=== PATIENT | female | born 1980 | race Asian ===

== ENCOUNTER 2018-01-18 07:41 | Emergency (ER) | payer SELFPAY ==
[~2018-01-18] VITALS: Ht 152.4 cm; Wt 77.1 kg
--- NOTE | 2018-01-18 08:15 | PHYS DOC ---
Past History Past Medical History: No Pertinent History Past Surgical History: Smoking: Non-smoker Alcohol Use: Occasionally Drug Use: Marijuana Adult General Chief Complaint Chief Complaint: vaginal bleeding in [facility] HPI 37-year-old female patient with LMP of 11/19/2017 at 8 weeks of gestation with home positive test without confirmed test in clinic with B+ blood type complaining of vaginal spotting and abdominal cramping pain for the last 10 days that getting worse today. She complaining of lower abdominal pain with radiation to her back as a crampy pain and rated her pain 5/ 10. Patient states she has bright red spotting when she wiped herself without needs to use a pad Patient denies nausea or vomiting, fever and chills, urinary symptoms, dizziness and palpitation. Patient states she did not seeking medical attention since she had vaginal bleeding. Review of Systems Review of Systems Constitutional: Denies fever or chills [] Eyes: Denies change in visual acuity, redness, or eye pain [] HENT: Denies nasal congestion or sore throat [] Respiratory: Denies cough or shortness of breath [] Cardiovascular: No additional information not addressed in HPI [] GI: Reports abdominal abdominal pain, denies nausea, vomiting, bloody stools or diarrhea [] : Denies dysuria or hematuria , reports vaginal bleeding[] Musculoskeletal: Denies back pain or joint pain [] Integument: Denies rash or skin lesions [] Neurologic: Denies headache, focal weakness or sensory changes [] Endocrine: Denies polyuria or polydipsia [] All other systems were reviewed and found to be within normal limits, except as documented in this note. Allergies Allergies Allergies Coded Allergies Type Severity Reaction Last Updated Verified No Known Drug Allergies 06/12/14 No Physical Exam Physical Exam Constitutional: Well developed, well nourished, mild distress, non-toxic appearance. [] HENT: Normocephalic, atraumatic, oropharynx moist, no oral exudates, nose normal. [] Eyes: PERRLA, EOMI, conjunctiva normal, no discharge. [] Neck: Normal range of motion, no tenderness, supple, no stridor. [] Cardiovascular:Heart rate regular rhythm, no murmur [] Lungs & Thorax: Bilateral breath sounds clear to auscultation [] Abdomen: Bowel sounds normal, soft, no tenderness, no masses, no pulsatile masses. [] Skin: Warm, dry, no erythema, no rash. [] Back: No tenderness, no CVA tenderness. [] Extremities: No tenderness, no cyanosis, no clubbing, ROM intact, no edema. [] Neurologic: Alert and oriented X 3, normal motor function, normal sensory function, no focal deficits noted. [] Psychologic: Affect normal, judgement normal, mood normal. 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 PHYSICIAN: LESLIE GALEANO MD REASON: 8 weeks , abdominal pain and vaginal bleeding PROCEDURE: OB <14 WKS Obstetrical ultrasound, 01/18/2018: History: Positive test, spotting and cramping Transabdominal and transvaginal scans were obtained. The uterus contains a single gestational sac with a normal echogenic rim. The mean gestational sac diameter is 1.6 cm suggesting a gestational age of 6 weeks and 3 days. The sonographic EDC is 09/10/2018. A yolk sac is evident within the gestational sac. No pole is identified. That is not considered abnormal at this early stage. No subchorionic hemorrhage is seen. The ovaries are of normal size. They contain tiny follicular cysts. No adnexal mass is seen. IMPRESSION: Early intrauterine of 6-7 weeks gestational age as described above. DICTATED AND SIGNED BY: SARAH ZHANG MD DATE: 01/18/18904 CC: LESLIE GALEANO MD; PCP,NO ~ Course & Med Decision Making Course & Med Decision Making Pertinent Labs and Imaging studies reviewed. (See chart for details) Evaluation of patient in ER showed 37-year-old female patient with complaining of vaginal bleeding for 10 days and lower abdominal pain. Patient had unremarkable physical exam. Vaginal exam showed mild dark blood in vagina. OB ultrasound showed intrauterine at 6-7 weeks of gestation without heart rate. HCG level was 8000 that was matching the age of . Blood type was B+. Patient instructed to follow-up with [facility] in 2 or 3 days. Dragon Disclaimer Dragon Disclaimer This electronic medical record was generated, in whole or in part, using a voice recognition dictation system. Departure Departure: Impression: Primary Impression: Vaginal bleeding during Additional Impression: Abdominal pain affecting Disposition: HOME, SELF-CARE (At 0933) Condition: STABLE Referrals: PCP,NO (PCP) Patient Instructions: Vaginal Bleeding During , First Trimester Additional Instructions: Follow-up with Dr. Rodriguez [facility] at [facility], call [phone] to make an appointment Drink plenty of liquids Follow-up with your primary care physician in 2-3 days Return to ER if not getting better Problem Qualifiers LESLIE GALEANO MD Jan 18, 2018 08:15
[2018-01-18 08:41] LABS: BASO % 1 % (0-3); EOS # 0.1 x10^3/uL (0.0-0.7); EOS % 1 % (0-3); HEMATOCRIT 46.2 % (36.0-47.0); HEMOGLOBIN 15.9 g/dL (12.0-15.5); LYMPH # 1.6 x10^3/uL (1.0-4.8); LYMPH % 36 % (24-48); MEAN CORPUSCULAR HEMOGLOBIN 30 pg (25-35); MEAN CORPUSCULAR HGB CONC 34 g/dL (31-37); MEAN CORPUSCULAR VOLUME 88 fL (79-100); MONO # 0.5 x10^3/uL (0.0-1.1); MONO % 12 % (0-9); NEUT # 2.3 x10^3uL (1.8-7.7); NEUT % 50 % (31-73); PLATELET COUNT 219 x10^3/uL (140-400); RED BLOOD COUNT 5.26 x10^6/uL (3.50-5.40); RED CELL DISTRIBUTION WIDTH 13.5 % (11.5-14.5); WHITE BLOOD COUNT 4.5 x10^3/uL (4.0-11.0)
[2018-01-18 08:58] LABS: BILIRUBIN,URINE NEG (NEG); CLARITY,URINE CLEAR; COLOR,URINE YELLOW; GLUCOSE,URINE NEG (NEG)
[2018-01-18 08:59] LABS: BACTERIA,URINE FEW /HPF (0-FEW); NITRITE,URINE NEG (NEG); RBC,URINE OCC /HPF (0-2); SQUAMOUS EPITHELIAL CELL,UR FEW /LPF; UROBILINOGEN,URINE 0.2 mg/dL (0.2 mg/dL); WBC,URINE OCC /HPF (0-4)
--- NOTE | 2018-01-18 09:11 | RAD ---
Obstetrical ultrasound, 01/18/2018: History: Positive test, spotting and cramping Transabdominal and transvaginal scans were obtained. The uterus contains a single gestational sac with a normal echogenic rim. The mean gestational sac diameter is 1.6 cm suggesting a gestational age of 6 weeks and 3 days. The sonographic EDC is 09/10/2018. A yolk sac is evident within the gestational sac. No pole is identified. That is not considered abnormal at this early stage. No subchorionic hemorrhage is seen. The ovaries are of normal size. They contain tiny follicular cysts. No adnexal mass is seen. IMPRESSION: Early intrauterine of 6-7 weeks gestational age as described above.
[2018-01-18 09:21] LABS: CALCIUM 8.7 mg/dL (8.5-10.1); CREATININE 0.7 mg/dL (0.6-1.0); GFR 93.2; POTASSIUM 3.8 mmol/L (3.5-5.1); TOTAL BILIRUBIN 1.2 mg/dL (0.2-1.0); TOTAL PROTEIN 8.1 g/dL (6.4-8.2)
[2018-01-18] MEDS ORDERED: IBUPROFEN 800 MG TABLET. PO ONE (09:30)
[2018-01-18 10:05] VITALS: BP 116/87
== END 2018-01-18 10:05 | disposition home or self-care (01) ==
LOC: ER 07:41
DX: O46.91 Antepartum hemorrhage, unspecified, first trimester (principal); R10.30 Lower abdominal pain, unspecified; O99.321 Drug use complicating pregnancy, first trimester; F12.10 Cannabis abuse, uncomplicated; Z3A.01 Less than 8 weeks gestation of pregnancy
CPT/HCPCS: 36415; 76801; 80053; 81001; 81025; 84702; 85025; 86900; 86901; 99285-25